=== PATIENT | female | born 1960 | race Caucasian/White ===

== ENCOUNTER → 2024-03-04 09:36 | Outpatient (REF) | payer BC, SELFPAY | LOC: HWRAD 09:36 | PROVIDERS: ATTENDING PHYSICIAN Physician Assistant; FAMILY PHYSICIAN Family Medicine; REFERRING PHYSICIAN Internal Medicine Hematology & Oncology | DX: N95.0 Postmenopausal bleeding (principal) | CPT/HCPCS: 76830; 76856 ==